=== PATIENT | male | born 2000 | race Two or more races ===

== ENCOUNTER 2022-02-03 22:26 | Emergency (ER) | payer SELFPAY ==
[~2022-02-03] VITALS: Ht 177.8 cm; Wt 68.0 kg
[2022-02-03] MEDS ORDERED: methylPREDNISolone SOD SUCC 125 MG/2ML VIAL ONE (22:40)
[2022-02-03] MEDS: methylPREDNISolone SOD SUCC 125 MG/2ML VIAL IV ONE (22:42)
[2022-02-03] MEDS: IV NS 0.9% 1,000 ML BAG IV ONE (22:42)
--- NOTE | 2022-02-03 22:43 | NUR ---
BIBRA FOR C/O ANAPHYLACTIC RESPONSE TO SHRIMP. 0.5MG EPI GIVEN IM TO L THIGH AND 50MG BENADRYL GIVEN IVP AT 22G LH. PT AWAKE AND ALERT X4 DENIES RESP DISTRESS 100% RA LUNGS CLEAR BILAT. GENERALIZED URTICARIA NOTED THROUGHOUT BODY. PT CHANGED INTO GOWBN AND PLACED ON MONITOR NOTED TACHY IN 120S. MD WAS AT BEDSIDE FOR EVAL.
--- NOTE | 2022-02-03 23:33 | NUR ---
PT AWAKE AND ALERT BREATHING UNLABORED. HIVES IMPROVED AND TACHYCARDIA IMPROVED. PT REPORTS HE IS "FEELING MUCH BETTER".
[2022-02-04] MEDS ORDERED: PRED20TA PO (00:01)
--- NOTE | 2022-02-04 00:50 | NUR ---
Patient discharged to home in stable condition. Written and verbal after care instructions given. Patient verbalizes understanding of instruction.IV removed. Catheter intact and site benign. Pressure and 4x4 applied to site. No bleeding noted.
[2022-02-04 01:09] VITALS: BP 124/74
== END 2022-02-04 01:00 | disposition home or self-care (01) ==
LOC: ER 22:28
DX: T78.1XXA Other adverse food reactions, not elsewhere classified, initial encounter (principal); L50.9 Urticaria, unspecified; Z60.2 Problems related to living alone; Z79.899 Other long term (current) drug therapy; X58.XXXA Exposure to other specified factors, initial encounter
CPT/HCPCS: 99283; 96374; 96361; 93005; J2930; J7030